=== PATIENT | male | born 1975 | race Two or more races ===

== ENCOUNTER 2021-01-22 09:00 | Outpatient (CLI) | payer OTHER | END 2021-01-22 23:59 | disposition home or self-care (01) | LOC: LAB 09:00 | PROVIDERS: ATTEND Student in an Organized Health Care Education/Training Program | DX: Z01.812 Encounter for preprocedural laboratory examination (principal); Z20.822 Contact with and (suspected) exposure to COVID-19 | CPT/HCPCS: C9803; U0003 ==

== ENCOUNTER 2021-01-27 11:24 | Day surgery (SDC) | payer OTHER ==
[2021-01-27] MEDS ORDERED: MORPHINE SULFATE/PF 10 MG/10ML (1MG/ML) AMPUL ONE (13:38)
[2021-01-27] MEDS ORDERED: BUPIVACAINE 0.5 % PF 150 MG/30 ML VIAL ONE (13:38)
[2021-01-27] MEDS ORDERED: EPINEPHRINE (1:1000) 1 MG/ML AMPUL ONE (13:39)
[2021-01-27] MEDS ORDERED: ANESTHESIA TRAY IN PYXIS 1 EA TRAY MC ONE (13:49)
[2021-01-27] MEDS ORDERED: FENTANYL PF 100MCG/2ML AMPUL ONE ×2 (14:17→15:23)
== END 2021-01-27 16:30 | disposition home or self-care (01) ==
LOC: DS 11:24
PROVIDERS: ATTEND Student in an Organized Health Care Education/Training Program
DX: S83.271A Complex tear of lateral meniscus, current injury, right knee, initial encounter (principal); X58.XXXA Exposure to other specified factors, initial encounter; Y93.89 Activity, other specified; Y92.89 Other specified places as the place of occurrence of the external cause; Y99.8 Other external cause status; M94.261 Chondromalacia, right knee
CPT/HCPCS: 29881; A4217; A6253; J0171; J0690; J1100; J2274; J2704; J3010 ×2; J3490